=== PATIENT | male | born 1975 | race African-American/Black ===

== ENCOUNTER 2018-03-24 16:55 | Emergency (ER) | payer MEDICAID, OTHER ==
[~2018-03-24] VITALS: Ht 175.3 cm; Wt 67.0 kg
[2018-03-24 16:56] VITALS: BP 124/69
[2018-03-24] MEDS ORDERED: ONDANSETRON ODT 4 MG PO ONE (17:30)
[2018-03-24] MEDS ORDERED: HYDROcodone/APAP 5/325 TABLET PO ONE (17:30)
[2018-03-24] MEDS ORDERED: ONDANSETRON ODT 4 MG ONE (17:41)
[2018-03-24] MEDS ORDERED: HYDROcodone/APAP 5/325 TABLET ONE (17:41)
== END 2018-03-24 17:54 | disposition left against medical advice (07) ==
LOC: ED 17:48
DX: S40.012A Contusion of left shoulder, initial encounter (principal); X58.XXXA Exposure to other specified factors, initial encounter; Y93.89 Activity, other specified; Y92.410 Unspecified street and highway as the place of occurrence of the external cause; Y99.8 Other external cause status
CPT/HCPCS: 29105; 99284